=== PATIENT | female | born 1975 | race Two or more races ===

== ENCOUNTER 2021-12-26 11:03 | Emergency (ER) | payer OTHER ==
[~2021-12-26] VITALS: Ht 160 cm; Wt 60.9 kg
[2021-12-26] MEDS ORDERED: SULF-261 PO (12:58)
[2021-12-26 13:02] VITALS: BP 138/72
== END 2021-12-26 13:08 | disposition home or self-care (01) ==
LOC: EMS 11:03
DX: N76.2 Acute vulvitis (principal)
CPT/HCPCS: 99284; Z7502